=== PATIENT | male | born 1955 | race Caucasian/White ===

== ENCOUNTER → 2017-08-11 | Outpatient (CLI) | payer OTHER ==
[2017-08-11 11:26] LABS: BUN 17 mg/dL (7-18)
[2017-08-11 11:28] LABS: GFR (ESTIMATED) 75 ML/MIN (>60)
[2017-08-12 08:40] LABS: Creatinine, Urine 74.6 mg/dL (Not Estab.); Microalbumin, Urine <3.0 ug/mL (Not Estab.)
== END ==
LOC: LAB 09:37
PROVIDERS: Nurse Practitioner Family
DX: I10 Essential (primary) hypertension (principal); E11.9 Type 2 diabetes mellitus without complications